=== PATIENT | male | born 1975 | race Caucasian/White ===

== ENCOUNTER 2020-03-11 12:27 | Outpatient (REF) | payer OTHER, SELFPAY ==
[2020-03-11 14:23] LABS: Anion Gap 12 (12-20); Blood Urea Nitrogen 17 mg/dL (9-16); Calcium 9.2 mg/dL (8.4-10.2); Carbon Dioxide 28 mmol/L (22-29); Chloride 103 mmol/L (96-108); Estimated Glomerular Filt Rate > 60; Glucose Random 99 mg/dL (60-115); Potassium 4.9 mmol/l (3.3-5.1); Sodium 138 mmol/L (135-145)
== END 2020-03-11 12:28 | disposition home or self-care (01) ==
LOC: HO.WFDLDS 12:27
PROVIDERS: Visit Provider Hospitalist
DX: M54.9 Dorsalgia, unspecified (principal); G89.29 Other chronic pain
CPT/HCPCS: 36415; 80048

== ENCOUNTER 2020-04-25 14:41 | Outpatient (RCR) | payer OTHER, SELFPAY ==
--- NOTE | 2020-04-25 16:18 | MHC.PT.EP ---
[facility] [place] Office [place] Office [place] Office [address] Alessandro Lindsay [address] [phone] F: [phone] F: [phone] F: [phone] F: [phone] Physical Therapy Plan of Care Date of Evaluation: 04/25/20 Date of Surgery: Diagnosis: low back pain Assessment: The Pt is a 44 y/o male referred to skilled PT for low back pain. Currently, the Pt reports no pain or discomfort, just mild stiffness/tightness. He states that he has episodes of severe back pain which essentially leaves him immobile or in significant distress for up to 2 weeks. He reports that when this occurs, the only way to get relief is laying supine and making sure he doesn't remain in one position for an extended period of time. Assessment reveals impaired ability to activate transverse abdominus, decreased core strength, muscle length deficits, mild tenderness to palpation along the lumbar PVM, and impaired thoracic mobility. The Pt will benefit from skilled PT services 1x/week for 8 weeks in order to reduce impairments and educate Pt on home exercise program to manage symptoms and reduce episodes of severe pain. Frequency and Duration: The patient will be seen 1x/week for 8 weeks Short Term Goals: -In 3 weeks, Pt to improve hamstring length B by at least 10 degrees. 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 -In 8 weeks, Pt to demonstrate I w/ HEP. Treatment Plan: Modalities to reduce pain, spasms and effusion. Manual therapy to restore motion and function. Therapeutic exercise to improve strength and flexibility. Neuromuscular re-education for posture and balance. Therapeutic activities to return to functional activities of daily living. Electronically signed by: Mahnaz Raza PT, DPT Please sign and return to therapist. Thank you for your referral.
--- NOTE | 2020-05-12 11:16 | MHC.PT.DC ---
[facility] [place] Office [place] Office [place] Office [address] Alessandro Lindsay [address] [phone] F: [phone] F: [phone] F: [phone] F: [phone] Physical Therapy Discharge Report Diagnosis: low back pain Date of Surgery: Date of Evaluation: 04/25/20 Date of Discharge: Treatments to Date: 1 Cancellations to Date: 1 No Shows to Date: 2 Discharge Status: Patient Elected to Stop Discharge Summary: The patient has elected not to be seen since the initial PT eval 16 days ago. He cancelled or no showed all additionally scheduled appointments. He has nothing else scheduled. D/C per Pt request. Electronically signed by: Mahnaz Raza PT, DPT Please sign and return to therapist. Thank you for your referral.
== END 2020-05-12 11:18 | disposition other institution (70) ==
LOC: HO.PT 14:41
PROVIDERS: PCP Internal Medicine; Visit Provider Internal Medicine
DX: M54.5 Low back pain (principal)
CPT/HCPCS: 97110; 97161

== ENCOUNTER → 2020-06-14 15:40 | Outpatient (BNVA) | payer OTHER, SELFPAY | PROVIDERS: PCP Internal Medicine; Visit Provider Nurse Practitioner Family ==

== ENCOUNTER → 2020-07-19 08:16 | Outpatient (BNVA) | payer OTHER, SELFPAY | PROVIDERS: PCP Internal Medicine; Visit Provider Psychiatry & Neurology Neurology ==

== ENCOUNTER → 2022-08-06 12:52 | Outpatient (BNVA) | payer OTHER, SELFPAY | PROVIDERS: PCP Internal Medicine; Visit Provider Anesthesiology | DX: M76.31 Iliotibial band syndrome, right leg (principal); M70.61 Trochanteric bursitis, right hip; G89.4 Chronic pain syndrome | CPT/HCPCS: 20552 ==

== ENCOUNTER 2024-01-15 10:03 | Outpatient (REF) | payer OTHER, SELFPAY ==
--- NOTE | ~2024-01-15 | XR_ITS ---
EXAMINATION: XR CHEST CLINICAL INFORMATION: Acute upper respiratory infection COMPARISON: None available. TECHNIQUE: 2 views of the chest were obtained. FINDINGS: No significant abnormality is noted involving the heart, lungs, mediastinum, bony thorax or soft tissues. XR/XR chest 2V IMPRESSION: Unremarkable examination. Electronically signed by: Hira Robledo MD 01/15/2024 04:13 PM [facility]
[2024-01-15 14:22] LABS: Influenza A PCR NEGATIVE (Negative); Influenza B PCR NEGATIVE (Negative); Resp Syncy Virus RNA Qual PCR NEGATIVE (Negative); SARS COV2 PCR INHOUSE NEGATIVE (Negative)
== END 2024-01-15 10:04 | disposition home or self-care (01) ==
LOC: HO.HMGCX 10:03
PROVIDERS: PCP Internal Medicine; Visit Provider Registered Nurse
DX: J06.9 Acute upper respiratory infection, unspecified (principal)
CPT/HCPCS: 0241U; 71046; 94640

== ENCOUNTER 2024-01-15 10:03 | Outpatient (AMB) | payer OTHER, SELFPAY ==
--- NOTE | 2024-01-15 10:23 | MHC.OFFWIV ---
Intake Vital Signs 01/15/24 10:30 Weight 202 lb 8 oz BP 120/88 Blood Pressure Location Rt brachial Position Sitting Pulse 78 Pulse Source Pulse Oximeter Temp 98.0 F Temp Source Oral Pulse Oximetry (%) 97 Oxygen Delivery Method Room Air Intake Visit Reasons: EP Chest congestion [phone] Intake Note: Patient here for chest congestion and cough that started saturday afternoon Patient Tobacco Use Status: Current everyday Tobacco user Allergies No Known Allergies Allergy (Verified 01/15/24 10:23) Do you need a note to return to daycare/school/sports/work: No HPI EP Chest congestion [phone] HPI Details This note is constructed using voice recognition software. While every effort has been made to ensure accuracy, supply assistant errors may have been included. The patient is a 48 year old male who presents to the clinic today with cough and congestion since Saturday. He notes that he was on vacation in [place] when he developed symptoms. He reports cough, chest congestion, and some dyspnea when he is talking. He has been taking cough syrup which has not seem to help the symptoms. He does have some mild body aches. He has had chills, but did not check his temperature. He reports he has been using his son's albuterol inhaler, however it has not helped his dyspnea. [facility] Medical History Low back pain Overweight (BMI 25.0-29.9) Witnessed apneic spells Surgical History No pertinent past surgical history Family History Father Arthritis Mother Esophageal cancer Brother No problems noted. Son No problems noted. Daughter No problems noted. Social History Alcohol intake: current Alcohol intake frequency: a few times a week Alcohol type: beer Patient Tobacco Use Status: Current everyday Tobacco user Review of Systems Const All systems reviewed & are unremarkable except as noted in HPI and below Physical Exam Vital Signs: Last Vital Signs Temp 98.0 F 01/15/24 10:30 Pulse 78 01/15/24 10:30 BP 120/88 01/15/24 10:30 Pulse Ox 97 01/15/24 10:30 Oxygen Delivery Method Room Air 01/15/24 10:30 Const General: cooperative, healthy appearing, comfortable and no acute distress Orientation/consciousness: patient oriented x3 Limitations: no limitations HEENT Head: Yes normal to inspection Ears: hearing grossly normal bilaterally, external ears normal and TM's normal bilaterally General nose exam: Normal external nose present, Normal nares present and No nasal discharge present Face and sinus: Yes normal facial exam and Yes sinuses nontender Mouth: Normal oral and palatal mucosa present and moist mucous membranes Throat: Yes tonsils normal, Yes uvula midline and Yes posterior oropharynx abnormal (Erythema) Eyes General: appearance normal, both eyes and all related structures Neck Neck: Yes normal visual inspection Resp Effort & Inspection: normal respiratory effort, able to speak in complete sentences, Actively coughing, no respiratory distress, not tachypneic, no tripod positioning and no use of accessory muscles Auscultation: wheezes throughout Cardio Jugular venous distension: no JVD Rate: regular rate Rhythm: regular rhythm Heart sounds: S1 normal heart sound present, S2 normal heart sound present, no click, no gallops, no murmurs and no rubs Skin General skin exam: no rashes or lesions noted, elasticity normal and turgor normal Neuro General: patient oriented x3 Extrem General: Yes normal to inspection and Yes no clubbing, cyanosis or edema Office Procedures Nebulizer Treatment Nebulizer Treatment 96857-Hmllyrsbi/MDI RX initial, or Nebulizer Subsequent Treatment Office Meds albuterol sulfate 2.5 mg/3 mL (0.083 %) solution for nebulization Performing Provider: Jessica Aden NP Performing Location: [facility] Administered by: Jessica Aden NP on 01/15/24 11:02 Dose Route Admin Location Dispensed Lot Number Expiration Date [facility][NOTE 3] Psychiatric Nurse Practitioner 2.5 mg inhalation inhalation 3 mL [id number] 10/02/24 8742-1537-88 MYLAN Assessment & Plan Assessment & Plan (1) URI with cough and congestion: Code(s): J06.9 - Acute upper respiratory infection, unspecified Plan: Viral swab obtained to rule out Covid based on symptoms. Advised mask wearing while symptomatic and quarantine per current CDC guidelines. Reviewed at home support methods including hydration, humidification, vix vapor rub, sinus rinse. Prednisone taper and albuterol inhaler prescribed for symptomatic management. Advised trial of Mucinex as well. Chest x-ray obtained to rule out pneumonia, which appears unremarkable. Advised follow up with worsening symptoms such as dyspnea at rest, which would require emergent evaluation. Plan See above for full details and plan. Orders: Orders AMB Nebulizer Treatment Today J06.9 - Acute upper respiratory infection, unspecified XR chest 2V Today J06.9 - Acute upper respiratory infection, unspecified SARS-CoV2/FLU/RSV Today J06.9 - Acute upper respiratory infection, unspecified Medications: New prednisone 5 tablets daily for 2 days, then 4 tablets daily for 2 days, then 3 tablets daily for 2 days, then 2 tablets daily for 2 days, then 1 tablet daily for 2 days. 10 mg PO DIRECTED 30 tabs 0RF albuterol sulfate 90 mcg/actuation 1 - 2 puffs inhalation QID PRN 6.7 grams 0RF Shortness Of Breath Or Wheezing Coding Level of Care Code Est Pt Level 4 (33048) Diagnoses URI with cough and congestion J06.9 CPT Codes Nebulizer Treatment - Nebulizer Treatment, initial or subsequent: 23161-Xrhjeduxm/MDI RX initial, or Nebulizer Subsequent Treatment ([id number])
[2024-01-15 10:30] VITALS: BP 120/88; PULSE 78; TEMP 36.7; O2SAT 97
== END 2024-01-15 11:42 | disposition home or self-care (01) ==
PROVIDERS: PCP Internal Medicine; Visit Provider Registered Nurse
DX: J06.9 Acute upper respiratory infection, unspecified (principal)

== ENCOUNTER 2024-07-15 08:50 | Outpatient (AMB) | payer OTHER, SELFPAY ==
--- NOTE | 2024-07-15 08:52 | A.OFFVIS_ITS ---
Vital Signs 07/15/24 08:53 Height 6 ft 1 in Weight 213 lb BMI 28.1 BP 157/96 H Blood Pressure Location Lt brachial Position Sitting Respiration 15 Pulse 66 Pulse Source Pulse Oximeter Pulse Oximetry (%) 99 Oxygen Delivery Method Room Air Intake Visit Reasons: Increasing back pain/VANDANA 08/06/22 Telephone Interviewer Required: No Allergies No Known Allergies Allergy (Verified 07/15/24 08:54) Medication List - Last Reconciled 07/15/24 by Veronika Allen LPN ibuprofen 800 mg PO Q6H PRN HPI Comments Details: Greg was in my office 2 years ago with symptoms concordant with right iliotibial band. He denied pain in the lower back at that time. However injection of the steroids into the trochanteric bursa non image guided resulted in no improvement. He stated that his pain went away on its own that is why he did not schedule any follow-up appointment. 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 Patient stated that his pain went away. Now he presents again in my office with complains on pain in the lower back with radiation of the pain down to the right lower extremity on the lateral surface of the hip lateral surface of the lower leg and numbness of the 4th and 5th toes. His pain is getting worse and he requests continuous evaluation. He reports difficulty sitting and pain exacerbation with sitting. I suspect radiculopathy of the S1 nerve root on the right as well as vertebra genic pain syndrome. Sacroiliac symptoms and signs are negative. PRIOR: ? ? Greg is a 42 y/o who presents for initial evaluation of chronic intermittent back pain that radiates into the bilateral hips/legs, right greater then left. He denies any trauma. His pain episodes started approximately 7-8 years ago. His pain is described as a deep toothache that when exacerbated will last for a week and then subsides and reoccurs every few months. He denies any weakness, b/b dysfunction, numbness, tingling, fevers, chills, or wt change. He was given prn pain medications, steroid taper, and NSAID's. He obtained an xray of the lumbar spine and was referred to me. While awaiting for his appointment his pain resolved and has not reoccurred as of yet. He kept his appointment so that if it should reoccur he can come in for evaluation quickly [facility] Medical History Low back pain Overweight (BMI 25.0-29.9) Witnessed apneic spells Surgical History No pertinent past surgical history Family History Father Arthritis Mother Esophageal cancer Brother No problems noted. Son No problems noted. Daughter No problems noted. Social History Alcohol intake: current Alcohol intake frequency: a few times a week Alcohol type: beer Patient Tobacco Use Status: Current everyday Tobacco user Review of Systems Const All systems reviewed & are unremarkable except as noted in HPI and below ENT Reports Normal hearing present Neuro Reports Normal hearing present and Denies Abnormal speech present Physical Exam Vital Signs: Last Vital Signs Pulse 66 07/15/24 08:53 Resp 15 07/15/24 08:53 BP 157/96 H 07/15/24 08:53 Pulse Ox 99 07/15/24 08:53 Oxygen Delivery Method Room Air 07/15/24 08:53 BMI result Body Mass Index 28.1 Const General: cooperative, healthy appearing, comfortable, no acute distress and alert Nutritional Appearance: average body habitus Orientation/consciousness: patient oriented x3 Limitations: no limitations HEENT Head: Yes normocephalic and Yes atraumatic Ears: hearing grossly normal bilaterally Eyes General: appearance normal, both eyes and all related structures Neck Neck: Yes normal visual inspection, Yes full ROM, Yes supple and Yes no JVD Resp Effort & Inspection: normal respiratory effort, able to speak in complete sentences and no audible wheezes Cardio Jugular venous distension: no JVD Palpation: other (no appreciable rhythmic abnormalities ) Peripheral pulses: radial pulses present, posterior tibial pulses present and dorsalis pedis present Back/Spine/Pelvis Other: Patient able to walk on heels and tip toes with no difficulties demonstrating good motor tone. Can flex forward to 60-75 degrees and extend to 10 degrees before experiencing lumbar pain. Demonstrates 5/5 strength of quadriceps bilaterally as well as flexion/dorsiflexion of bilateral feet against resistan ce. Tenderness on palpation in paraspinal spinal region lower portion of the lumbar spine. SLR is positive on the right. Fernando test is negative on the right. Reports numbness in 4th and 5th finger. Cervical Spine: cervical ROM normal Neuro General: patient oriented x3, gait normal, moves all extremities and Normal light touch and pain sensation Cranial nerves: Yes Normal hearing present Speech: No Abnormal speech present Gait exam (Neuro): Normal gait present Motor exam (neuro): 5/5 motor strength present throughout and no tremor noted Psych Appearance: grossly normal Speech and movement: Clear speech present Affect: normal affect Thought process: Normal thought process present Insight: Good insight present (Psych) Judgement: Good judgement present (Psych) Assessment & Plan Assessment & Plan (1) Lumbosacral radiculopathy at S1: Code(s): M54.17 - Radiculopathy, lumbosacral region Category: Medical (2) Vertebrogenic low back pain: Code(s): M54.51 - Vertebrogenic low back pain Category: Medical Plan I will schedule this patient for the MRI of the lumbar spine. The very moment the patient will step out of the MRI she will give us a call and schedule an appointment with me. We will discuss MRI and we will choose appropriate way of treating of his pain. Orders: Orders MR lumbar spine wo con Today M54.17 - Radiculopathy, lumbosacral region, M54.51 - Vertebrogenic low back pain Patient Instructions: I here by testify that I spent 32 minutes in conversation with this patient as well as evaluating his prior records, planning his care and organizing this note. Coding Level of Care Code Est Pt Level 4 (14923) Diagnoses Lumbosacral radiculopathy at S1 M54.17 Vertebrogenic low back pain M54.51
[2024-07-15 08:53] VITALS: BP 157/96; PULSE 66; RESP 15; O2SAT 99; BMI 28.1
== END 2024-07-15 09:10 | disposition home or self-care (01) ==
LOC: HO.PMC 08:51
PROVIDERS: PCP Internal Medicine; Visit Provider Anesthesiology
DX: M54.17 Radiculopathy, lumbosacral region (principal); M54.51 Vertebrogenic low back pain
CPT/HCPCS: 99214

== ENCOUNTER 2024-08-21 15:42 | Outpatient (AMB) | payer OTHER, SELFPAY ==
--- NOTE | 2024-08-21 15:47 | A.OFFPC_ITS ---
Vital Signs 3 08/21/24 15:48 Height 6 ft 1 in Weight 209 lb BMI 27.6 BP 134/86 Blood Pressure Location Lt brachial Position Sitting Respiration 16 Pulse 75 Pulse Source Pulse Oximeter Temp 98.0 F Temp Source Oral Pulse Oximetry (%) 97 Oxygen Delivery Method Room Air Intake Visit Reasons: re-establish care not been seen in over 4 years Intake Note: Patient is a new patient here to establish care. Patient is re-establishing care at this practice; reports that he was not seen elsewhere in the interim. 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 Accompanied by: Self / Same As Patient Allergies No Known Allergies Allergy (Verified 08/21/24 16:24) Medication List - Last Reconciled 08/21/24 by ABEL Borjas No Known Home Meds Tobacco use date assessed: 08/21/24 Dental Screening Dental Screen Date: 08/21/24 Did you have a dental visit in the last 12 months?: Yes Did you have a dental problem in the last 6 months where you did not have access to dental care?: No Was dental information given to patient?: Patient has dentist HPI re-establish care not been seen in over 4 years 2 HPI0 Details Previous PCP:has not have a PCP in a while Last visit: 3 years Last PE: been awhile Specialist: pain management OBGYN:n/a Past medical history:low back pain, radiating down right leg, and associated with numbness and tingling in right foot Medications: Family HX: father had multiple colon polyps, mother of cancer that was associated with her smoking Problem: The patient is a 48-year-old male presenting to re-establish care with concerns of sleep apnea and chronic back pain. The patient reports experiencing episodes of apnea during sleep, as noted by his girlfriend, and feels tired during the day despite adequate sleep duration. He previously underwent a home sleep study approximately three to four years ago but did not follow up on the results. He expresses interest in undergoing another sleep study to confirm the diagnosis. 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 He experiences tingling and numbness in his right leg, with symptoms exacerbated by prolonged sitting, such as during his commute. He is currently undergoing physical therapy twice a week and has previously used NSAIDs for pain management. The patient has a history of elevated blood pressure, which may have been influenced by pain. His current blood pressure reading is 134/86 mmHg. He has a family history of colon polyps and cancer, prompting consideration for colon cancer screening. He also has a family history of skin cancer, and a dermatology referral is planned for screening. The patient has a history of tobacco use, quitted smoking a year ago, but currently uses a vape pen daily. right inner forearm epidermal cyst and smaller epidermal cyst at the outer aspect of the right forearm. Will do an ultrasound to further evaluate [facility] Medical History Overweight (BMI 25.0-29.9) Witnessed apneic spells Low back pain Surgical History No pertinent past surgical history Family History Father Arthritis Mother Esophageal cancer Brother No problems noted. Son No problems noted. Daughter No problems noted. 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 1. Little interest or pleasure in doing things: nearly every day 2. Feeling down, depressed, or hopeless: not at all 3. Trouble falling or staying asleep, or sleeping too much: more than half the days 4. Feeling tired or having little energy: more than half the days 5. Poor appetite or overeating: not at all 6. Feeling bad about yourself - or that you are a failure or have let yourself or your family down: not at all 7. Trouble concentrating on things, such as reading the newspaper or watching television: not at all 8. Moving or speaking so slowly that other people could have noticed. Or the opposite - being so fidgety or restless that you have been moving around a lot more than usual: not at all 9. Thoughts that you would be better off or of hurting yourself in some way: not at all Total score: 7 Depression Screening Interpretation: Positive Depression Screening Done: Yes 33601 - PHQ-9 Billing: Yes Source: Developed by Drs. Joe Alexander, Mirna Bradshaw, Jules Gomes and colleagues, with an educational julian from [employer]. Thrive Questionnaire Date Thrive assessed: 08/21/24 I am a: Patient What is your living situation today?: I have a steady place to live Within the past 12 months, did the food you bought not last and you didn't have the money to get more?: Never true Within the past 12 months, did you worry whether your food would run out before you got money to buy more?: Never true Do you have trouble paying for medicines?: No Do you have trouble getting transportation to medical appointments?: No Do you have trouble paying your heating and electricity bill?: No Do you have trouble taking care of your child, family member or friend?: No Do you have trouble with day-to-day activities such as bathing, preparing meals, shopping, managing finances, etc.?: No Are you currently unemployed and looking for a job?: No Are you interested in more education?: No Please select the resources that you would like help with: None Currently or been in a relationship where the following occur: No concerns reported THRIVE Score: 0 AUDIT C Alcohol Use Questionnaire (AUDIT-C) 1. How often do you have a drink containing alcohol?: 2-3 times a week 2. How many drinks containing alcohol do you have on a typical day when you are drinking?: 1 or 2 3. How often do you have six or more drinks on one occasion?: Monthly Total Score: 5 Score Reviewed/Action Taken: Yes JAE-7 AMB Questionnaire JAE-7 Date JAE - 7 assessed: 08/21/24 Feeling nervous, anxious, or on edge: 0 = Not at all Not being able to stop or control worryin = Not at all Worrying too much about different things: 0 = Not at all Trouble relaxin = Not at all Being so restless that it is hard to sit still: 0 = Not at all Becoming easily annoyed or irritable: 0 = Not at all Feeling afraid as if something awful might happen: 0 = Not at all Total JAE-7 score (0-4 normal; 5-9 mild; 10-14 moderate; 15-21 severe): 0 Source: Developed by Drs. Joe Alexander, Mirna Bradshaw, Jules Gomes and colleagues, with an educational julian from [employer]. JAE-7 Assessment Billing JAE-7 Assessment Tool: JAE-7 Assessment 91664 Review of Systems Const Denies headache(s) Eyes Denies loss of vision ENT Denies vertigo, Denies dizziness, Denies headache(s) and Denies sore throat Card Denies chest pain, Denies leg edema and Denies lightheadedness Resp Denies cough, Denies hemoptysis and Denies wheezing GI Denies abdominal pain, Denies melena, Denies constipation, Denies diarrhea and Denies vomiting Denies dysuria, Denies urinary frequency and Denies urinary urgency Musc Reports back pain, Denies arthralgias, Denies joint swelling, Reports numbness (Right foot), Reports radiating pain into limb (right leg) and Reports tingling (Right foot) Skin/Breast Reports lesions (2 epidermal cysts to right forearm larger anterior, smaller posterior) Neuro Denies Abnormal speech present, Denies behavioral changes, Denies vertigo, Denies dizziness, Denies headache(s), Denies loss of vision, Denies memory loss, Reports numbness (Right foot) and Reports tingling (Right foot) Psych Denies anxiety, Denies behavioral changes, Denies depression, Denies memory loss and Denies panic attacks David/Lymph Denies easy bleeding and Denies easy bruising Aller/Immun Denies wheezing Physical exam (Primary Care) Vital Signs: Last Vital Signs Temp 98.0 F 08/21/24 15:48 Pulse 75 08/21/24 15:48 Resp 16 08/21/24 15:48 BP 134/86 08/21/24 15:48 Pulse Ox 97 08/21/24 15:48 Oxygen Delivery Method Room Air 08/21/24 15:48 BMI result Body Mass Index 27.6 Tobacco/Smoking Status: Tobacco use Status Tobacco use date assessed 08/21/24 08/21/24 15:58 Patient Tobacco Use Status Never used Tobacco 08/21/24 15:58 e-Cigarette/Vaping Use Currently Using 08/21/24 15:58 PHQ-9: PHQ-9 Score PHQ-9: Total score 7 08/21/24 16:36 Depression Screening Interpretation: Positive Thrive Assessment: Date of Thrive Assessment Date Thrive assessed 08/21/24 08/21/24 15:58 Currently or been in a relationship where the following occur: No concerns reported Const General: healthy appearing, no acute distress, alert and awake Nutritional Appearance: well nourished Orientation/consciousness: oriented to person, oriented to place and oriented to time HENMT Ears: TM's normal bilaterally General nose exam: Normal nasal mucous membranes and turbinates present Eyes Conjunctivae: conjunctivae normal Sclerae: sclerae normal Pupils: Equal, round and reactive pupils present Neck Neck: Yes no lymphadenopathy and Yes no JVD Thyroid: Thyroid normal Carotids: no bruits Resp Effort & Inspection: normal respiratory effort and not tachypneic Auscultation: no crackles, no rales, no rhonchi and no wheezes Cardio Rate: regular rate Rhythm: regular rhythm Heart sounds: no murmurs and normal S1 and S2 GI Palpation (GI): Soft to palpation, nontender, no hepatomegaly and no splenomegaly Auscultation: normal bowel sounds General: Yes no CVA tenderness Back/Spine/Pelvis Back: no CVA tenderness Cervical Spine: No Cervical spine tenderness Thoracic/Lumbar Spine: No thoracic spinal tenderness and No lumbar spinal tenderness Skin General skin exam: dry skin Lesions: lesion noted Full body images: 2 1. Epidural cyst to anterior forearm 2. Epidural cyst to posterior forearm Neuro General: oriented to person, oriented to place and oriented to time Cranial nerves: Yes Equal, round and reactive pupils present Speech: No Abnormal speech present Gait exam (Neuro): Normal gait present Motor exam (neuro): no tremor noted Extrem Right upper extremity: full ROM Left upper extremity: full ROM Right lower extremity: full ROM; no edema Left lower extremity: full ROM; no edema Psych Mental Status: mental status grossly normal Speech and movement: Normal speech and movement present Affect: normal affect Attitude: cooperative Thought process: Normal thought process present Coding Level of Care Code New Pt Level 4 (46395) Diagnoses Chronic right-sided low back pain with right-sided sciatica M54.41; G89.29 Chronicity: chronic Back pain laterality: right Sciatica presence: with sciatica Sciatica laterality: sciatica of right side Witnessed apneic spells R06.81 Snoring R06.83 Epidermal cyst L72.0 Family history of skin cancer Z80.8 Family history of colonic polyps Z83.719 Additional Codes JAE-7 Assessment Billing - JAE-7 Assessment Tool: JAE-7 Assessment 75250 ([id number]) PHQ-9 - 91053 - PHQ-9 Billing: Yes ([id number]) Time Spent (min) 39 Assessment & Plan Assessment & Plan (1) Low back pain: Comment: X-rays of the lumbosacral spine done back on 11/29/2017 revealed only the presence of Schmorl's nodes at L2. The rest of the lumbar spine is normal and disc spaces are well preserved and vertebral alignment is normal. SI joints are normal as well Code(s): M54.5 - Low back pain Category: Medical Qualifiers: Chronicity: chronic Back pain laterality: right Sciatica presence: w ith sciatica Sciatica laterality: sciatica of right side Qualified Code(s): M 54.41 - Lumbago with sciatica, right side; G89.29 - Other chronic pain Plan: s/p injury to back that he explained has stepping off forklift and immediately having back pain Lumbar xray on 11/2017 showed only schmorl's nodes at L2. He currently being managed by Pain Management, he is going PT 2/week. Pain Management also ordered a MRI. No other interventions added today. (2) Witnessed apneic spells: Code(s): R06.81 - Apnea, not elsewhere classified Category: Medical Plan: high suspicion of sleep apnea he had a home sleep study in the past but did not follow for the results will order the patient a home sleep study to further evaluate (3) Snoring: Code(s): R06.83 - Snoring Category: Medical Plan: had a home sleep study about 3-4 years ago but did not follow witnessed apneic episodes and feeling tired during the daytime will order a home sleep study (4) Epidermal cyst: Code(s): L72.0 - Epidermal cyst Category: Medical Plan: Two epidermoid cysts. One at the anterior portion of the right forearm which is larger than the one at the posterior region. Reports that these have been there for awhile, but seem to have gotten bigger. Will order an ultrasound of the right forearm to further evaluate (5) Family history of skin cancer: Code(s): Z80.8 - Family history of malignant neoplasm of other organs or systems Category: Medical Plan: will place a dermatology referral for evaluation (6) Family history of colonic polyps: Code(s): Z83.719 - Family history of colon polyps, unspecified Category: Medical Plan reports father having multiple colon polyps pt also has a 30 year smoking history-since had switched to vaping daily will order a colonoscopy Orders: Orders 2 Complete Blood Count Auto Diff Today E66.3 - Overweight, M54.16 - Radiculopathy, lumbar region, M54.5 - Low back pain, R06.81 - Apnea, not elsewhere classified, Z00.00 - Encounter for general adult medical examination without abnormal findings UA CC w/rflx Micro + Cult Today E66.3 - Overweight, M54.16 - Radiculopathy, lumbar region, M54.5 - Low back pain, R06.81 - Apnea, not elsewhere classified, Z00.00 - Encounter for general adult medical examination without abnormal findings RT home sleep study Today G47.19 - Other hypersomnia, R06.81 - Apnea, not elsewhere classified, R06.83 - Snoring US Extremity Nonvas Limited RT Today L72.0 - Epidermal cyst Comprehensive [place]. Panel Fast Today E66.3 - Overweight, M54.16 - Radiculopathy, lumbar region, M54.5 - Low back pain, R06.81 - Apnea, not elsewhere classified, Z00.00 - Encounter for general adult medical examination without abnormal findings TSH reflex Free T4 Today E66.3 - Overweight, M54.16 - Radiculopathy, lumbar region, M54.5 - Low back pain, R06.81 - Apnea, not elsewhere classified, Z00.00 - Encounter for general adult medical examination without abnormal findings Vitamin D 25-OH Total Today E66.3 - Overweight, M54.16 - Radiculopathy, lumbar region, M54.5 - Low back pain, R06.81 - Apnea, not elsewhere classified, Z00.00 - Encounter for general adult medical examination without abnormal findings Lipid Panel Today E66.3 - Overweight, M54.16 - Radiculopathy, lumbar region, M54.5 - Low back pain, R06.81 - Apnea, not elsewhere classified, Z00.00 - Encounter for general adult medical examination without abnormal findings Referrals 2 Dermatology Referral Z80.8 - Family history of malignant neoplasm of other organs or systems Gastroenterology Referral Z83.719 - Family history of colon polyps, unspecified, Z87.891 - Personal history of nicotine dependence
[2024-08-21 15:48] VITALS: BP 134/86; PULSE 75; RESP 16; TEMP 36.7; O2SAT 97; BMI 27.6
== END 2024-08-21 16:53 | disposition home or self-care (01) ==
LOC: HO.HMCH 15:42
DX: M54.41 Lumbago with sciatica, right side (principal); G89.29 Other chronic pain; R06.81 Apnea, not elsewhere classified; R06.83 Snoring; L72.0 Epidermal cyst; Z80.8 Family history of malignant neoplasm of other organs or systems; Z83.719 Family history of colon polyps, unspecified

== ENCOUNTER → 2024-08-21 15:42 | Outpatient (BNVA) | payer OTHER, SELFPAY | DX: Z76.89 Persons encountering health services in other specified circumstances (principal); M54.41 Lumbago with sciatica, right side; G89.29 Other chronic pain; R06.81 Apnea, not elsewhere classified; R06.83 Snoring; L72.0 Epidermal cyst; Z80.8 Family history of malignant neoplasm of other organs or systems; Z83.719 Family history of colon polyps, unspecified; Z13.31 Encounter for screening for depression; Z13.30 Encounter for screening examination for mental health and behavioral disorders, unspecified | CPT/HCPCS: 96127 ==

== ENCOUNTER 2024-08-27 15:02 | Outpatient (RCR) | payer OTHER, SELFPAY ==
--- NOTE | 2024-08-13 14:54 | MHC.PT.EP ---
[facility] [place] Office [place] Office [place] Office [address] Alessandro Lindsay [address] [phone] F: [phone] F: [phone] F: [phone] F: [phone] Physical Therapy Plan of Care Date of Evaluation: 08/13/24 Date of Surgery: n/a Diagnosis: Vertrogenic low back pain Chronic pain syndrome Assessment: Pt is a pleasant and motivated 48yo M who presents to PT with low back pain radiating into RLE. He has intermittent numbness and tingling into RLE. He presents to PT with current impairments in pain, decreased ROM, decreased strength, soft tissue restrictions, and impaired gait. His symptoms began to centralize with extension positions including prone. He is limited functionally by prolonged sitting, LE ADLs, and bending. He is an excellent candidate for skilled PT in order to address current impairments to facilitate return to PLOF. He is recommended to be seen 2x/week for 4 weeks and will be reassessed at that time Frequency and Duration: The patient will be seen 2x/week for 4 weeks Short Term Goals: Pt will be I with HEP to promote self management of symptoms Pt will have centralization of symptoms Planogrammer Goals: Pt will tolerate prolonged sitting > 1 hour with improved posture and without pain or radicular symptoms Pt will demonstrate ability to squat and picker tender helper 30# object with proper mechanics and without pain Pt will perform LE ADLs without pain or compensation Treatment Plan: Modalities to reduce pain, spasms and effusion. Manual therapy to restore motion and function. Therapeutic exercise to improve strength and flexibility. Neuromuscular re-education for posture and balance. Therapeutic activities to return to functional activities of daily living. Electronically signed by: Fatmata Harris, PT, DPT Please sign and return to therapist. Thank you for your referral.
--- NOTE | 2024-12-15 10:41 | MHC.PT.DC ---
[facility] [place] Office [place] Office [place] Office [address] Alessandro Lindsay [address] [phone] F: [phone] F: [phone] F: [phone] F: [phone] Physical Therapy Discharge Report Diagnosis: Vertrogenic low back pain Chronic pain syndrome Date of Surgery: n/a Date of Evaluation: 08/13/24 Date of Discharge: 12/15/24 Treatments to Date: 3 Cancellations to Date: 2 No Shows to Date: 2 Discharge Status: Visit Non-compliance Discharge Summary: Pt was seen for skilled PT from 08/13/24-08/27/24. His last attended appointment was 08/27/24. He had 2 cancellations and 2 no show appointments since SOC. He is being D/C from skilled PT as he has not attended or called to reschedule in > 30 days. Pt current level of function unknown at this time Electronically signed by: Fatmata Romo, PT, DPT Please sign and return to therapist. Thank you for your referral.
== END 2024-12-15 10:41 | disposition home or self-care (01) ==
LOC: HO.PT 15:02
PROVIDERS: PCP Internal Medicine; Visit Provider Anesthesiology
DX: M54.51 Vertebrogenic low back pain (principal); G89.4 Chronic pain syndrome
CPT/HCPCS: 97110; 97161

== ENCOUNTER 2024-09-30 15:35 | Outpatient (REF) | payer OTHER, SELFPAY ==
--- NOTE | ~2024-09-30 | US_ITS ---
US EXTREMITY NON-VASCULAR LIMITED RIGHT History: Two epidermoid cyst to right forearm. One anterior and one posterior. Comparison: None FINDINGS: Targeted ultrasound was performed at the location of the palpable concerns and indicated by the patient. The survey shows the following: -In the right mid forearm: 2.7 x 0.6 x 1.5 cm isoechoic/minimally hyperechoic solid mass in the superficial soft tissues. No abnormal vascularity demonstrated with color Doppler evaluation. -In the right posterior mid arm: 1.9 x 0.4 x 0.9 cm isoechoic/minimally hyperechoic solid mass in the superficial soft tissues. No abnormal gas collection is demonstrated with color Doppler evaluation. US/US Extremity Nonvas Limited RT IMPRESSION: Two palpable concerns in the right arm/forearm with benign sonographic features suggestive of lipomas. Electronically signed by: Armani Perez MD 09/30/2024 04:32 PM EDT
--- OUTSIDE RECORDS SUMMARY | 2024-09-30 16:14 | XMS_ITS | Clinical Summary ---
Author Organization [facility] Address [address] [place] [id number] Phone Care Team Providers Care Mobile Designer Name Role Phone Pcp, Unknown Primary Care Provider Unavailabl e Social History Tobacco Use Types Packs/Day Years Used Date Smoking Tobacco: Never Assessed Education Answer Date Recorded Are you interested in more education? Not on kasi e 06/29/2022 Are you concerned about learning? Not on file 06/29/2022 No 06/29/2022 No 06/29/2022 Digital Access Answer Date Recorded No 07/28/2022 No 07/28/2022 No 07/28/2022 Reliable internet access at home? Not on file 07/28/2022 Device with a working camera? Not on file Sex and Gender Information Value Date Recorded Sex Assigned at Not on file Legal Sex Male 1:16 PM EST Gender Identity Not on file Sexual Orientation Not on file Plan of Treatment Health Maintenance Due Date Last Done Comments Adult Td,Tdap Booster 1975 LIPID PANEL 1975 DEPRESSION SCREENING 1987 SMOKING Hx and SMOKELESS TOB ACCO SCREENING 10/04/1988 HEPATITIS C SCREENING 10/04/1993 HIV ONE-TIME SCREENING (18-6 5 YEARS) 10/04/1993 COLOGUARD 10/04/2020 COLONOSCOPY 10/04/2020 COLORECTAL CANCER SCREENING 10/04/2020 FIT TEST 10/04/2020 FOBT 10/04/2020 SIGMOIDOSCOPY 10/04/2020 VIRTUAL COLONOSCOPY 10/04/2020 COVID-19 VACCINE (2023-2 5 season) 2023 HEPATITIS A VACCINES Aged Out No long er eligible based on patient's age to complete this topic HIB VACCINES Aged Out No longer eligi ble based on patient's age to complete this topic MENINGOCOCCAL VACCINES (ACWY) Aged Out No longer eligible based on patient's age to complete this topic MENINGOCOCCAL VACCINES (B) Aged Out N o longer eligible based on patient's age to complete this topic PNEUMOCOCCAL VACCINES (0-49 years) Aged Out No longer eligible based on patient's age to complete this topic Medical Devices Not on file Insurance CIGNA PPO CIGNA PPO Member Subscriber Plan / Payer (Ef fective 2012-Present) Name:Greg Diaz Relation to Subscriber:Self Name:Greg Diaz Payer ID:[id number] ([facility]) Type:PPO Address: [place] [id number] CIGNA PPO CIGNA PPO CIGNA PPO CIGNA PPO CIGNA PPO CIGNA PPO CIGNA PPO Care Teams Mobile Designer Relationship Specialty Start Date End Date Pcp, Unknown PCP - General 03/05/20 Additional Source Comments The information contained in this document represents components of the legal health record. It is not the complete legal health record.[facility]
== END 2024-09-30 15:36 | disposition home or self-care (01) ==
LOC: HO.US 15:35
DX: L72.0 Epidermal cyst (principal)
CPT/HCPCS: 76882

== ENCOUNTER → 2024-09-30 15:37 | Outpatient (BNV) | payer OTHER, SELFPAY | PROVIDERS: Visit Provider Radiology Body Imaging | DX: R22.31 Localized swelling, mass and lump, right upper limb (principal) | CPT/HCPCS: 76882 ==

== ENCOUNTER 2024-10-22 15:47 | Outpatient (AMB) | payer OTHER, SELFPAY ==
--- OUTSIDE RECORDS SUMMARY | 2024-10-22 15:51 | XMS_ITS | Clinical Summary ---
Author Organization [facility] Address [address] [place] [phone] Phone Care Team Providers Care Pierogi Maker Name Role Phone Pcp, Unknown Primary Care [...] Relation to Subscriber:Self Name:Greg Diaz Payer ID:[id number] ([facility]) Type:PPO Address: [place] [id number] CIGNA PPO CIGNA PPO CIGNA PPO CIGNA PPO CIGNA PPO CIGNA PPO CIGNA PPO Care Teams Pierogi Maker Relationship Specialty Start Date End Date Pcp, Unknown PCP - General 03/05/20 Additional Source Comments The information contained in this document represents components of the legal health record. It is not the complete legal health record.[facility]
--- NOTE | 2024-10-22 16:09 | A.OFFPC_ITS ---
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 Accompanied by: Self / Same As Patient Allergies No Known Allergies Allergy (Verified 10/22/24 16:31) Medication List - Last Reconciled 10/22/24 by ABEL Borjas No Known Home Meds Tobacco use date assessed: 10/22/24 Dental Screening Dental Screen Date: 10/22/24 Did you have a dental visit in the last 12 months?: Yes Did you have a dental problem in the last 6 months where you did not have access to dental care?: No Was dental information given to patient?: Patient has dentist HPI ANNUAL PHYSICAL HPI Details Dentist: up to date Eye:Never had them check-will make an appointment Snellen: Right: Left: Corrected vision: cheaters STI screening: Colonoscopy: He was referred on previous visit and needs to call and make an appointment Pap Smer:n/a PHQ-9: Flu:He does not usually take this COVID: Tdap: due-he will hold off for now. Diet: regular Exercise: denies exercising The patient is a 49-year-old male presenting for annual physical and routine check-up and management of chronic conditions. The patient has a history of hypertension, with recent measurements showing a blood pressure of 138/90 mmHg. He reports that his blood pressure tends to fluctuate, and he has been advised to monitor it regularly. The patient also has a history of lipomas, with a new lump noted on his abdomen, similar in size to a previous one. He has been advised to monitor the size of these lipomas. The patient reports symptoms suggestive of sleep apnea, including feeling tired despite adequate sleep duration. A home sleep study has been recommended but has not yet been conducted. The patient experiences visual impairment, using reading glasses and noting variability in his ability to focus. He has been advised to have his vision checked, as he has not had an eye examination recently. Preventative care measures discussed include the need for a colonoscopy, which has not yet been scheduled. COUNT INCLUDES THE [facility] Medical History Overweight (BMI 25.0-29.9) Witnessed apneic spells Low back pain Surgical History No pertinent past surgical history Family History Father Arthritis Mother Esophageal cancer Brother No problems noted. Son No problems noted. Daughter No problems noted. 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 1. Little interest or pleasure in doing things: nearly every day 2. Feeling down, depressed, or hopeless: not at all 3. Trouble falling or staying asleep, or sleeping too much: more than half the days 4. Feeling tired or having little energy: more than half the days 5. Poor appetite or overeating: not at all 6. Feeling bad about yourself - or that you are a failure or have let yourself or your family down: not at all 7. Trouble concentrating on things, such as reading the newspaper or watching television: not at all 8. Moving or speaking so slowly that other people could have noticed. Or the opposite - being so fidgety or restless that you have been moving around a lot more than usual: not at all 9. Thoughts that you would be better off or of hurting yourself in some way: not at all Total score: 7 Depression Screening Interpretation: Positive Depression Screening Done: Yes Source: Developed by Drs. Joe Alexander, Mirna Bradshaw, Jules Gomes and colleagues, with an educational julian from [employer]. Thrive Questionnaire Date Thrive assessed: 10/22/24 I am a: Patient What is your living situation today?: I have a steady place to live Within the past 12 months, did the food you bought not last and you didn't have the money to get more?: Never true Within the past 12 months, did you worry whether your food would run out before you got money to buy more?: Never true Do you have trouble paying for medicines?: No Do you have trouble getting transportation to medical appointments?: No Do you have trouble paying your heating and electricity bill?: No Do you have trouble taking care of your child, family member or friend?: No Do you have trouble with day-to-day activities such as bathing, preparing meals, shopping, managing finances, etc.?: No Are you currently unemployed and looking for a job?: No Are you interested in more education?: No Please select the resources that you would like help with: None Currently or been in a relationship where the following occur: No concerns reported THRIVE Score: 0 AUDIT C Alcohol Use Questionnaire (AUDIT-C) 1. How often do you have a drink containing alcohol?: 2-3 times a week 2. How many drinks containing alcohol do you have on a typical day when you are drinking?: 1 or 2 3. How often do you have six or more drinks on one occasion?: Monthly Total Score: 5 Score Reviewed/Action Taken: Yes JAE-7 AMB Questionnaire JAE-7 Date JAE - 7 assessed: 10/22/24 Feeling nervous, anxious, or on edge: 0 = Not at all Not being able to stop or control worryin = Not at all Worrying too much about different things: 0 = Not at all Trouble relaxin = Not at all Being so restless that it is hard to sit still: 0 = Not at all Becoming easily annoyed or irritable: 0 = Not at all Feeling afraid as if something awful might happen: 0 = Not at all Total JAE-7 score (0-4 normal; 5-9 mild; 10-14 moderate; 15-21 severe): 0 Source: Developed by Drs. Joe Alexander, Mirna Bradshaw, Jules Gomes and colleagues, with an educational julian from [employer]. Review of Systems Const Reports daytime sleepiness, Denies headache(s) and Reports snoring Eyes Reports change in vision (difficulty reading) and Denies loss of vision ENT Denies vertigo, Denies dizziness, Denies headache(s) and Denies sore throat Card Denies chest pain, Denies leg edema and Denies lightheadedness Resp Denies cough, Denies hemoptysis, Reports snoring and Denies wheezing GI Denies abdominal pain, Denies melena, Denies constipation, Denies diarrhea and Denies vomiting Denies dysuria, Denies urinary frequency and Denies urinary urgency Musc Denies arthralgias, Denies joint swelling, Denies numbness and Denies tingling Neuro Denies Abnormal speech present, Denies behavioral changes, Denies vertigo, Denies dizziness, Denies headache(s), Denies loss of vision, Denies memory loss, Denies numbness and Denies tingling Psych Denies anxiety, Denies behavioral changes, Denies depression, Denies memory loss and Denies panic attacks David/Lymph Denies easy bleeding and Denies easy bruising Aller/Immun Denies wheezing Physical exam (Primary Care) Vital Signs: Last Vital Signs Temp 97.1 F 10/22/24 16:10 Pulse 69 10/22/24 16:10 Resp 18 10/22/24 16:10 BP 138/90 H 10/22/24 16:10 Pulse Ox 97 10/22/24 16:10 Oxygen Delivery Method Room Air 10/22/24 16:10 BMI result Body Mass Index 27.9 Tobacco/Smoking Status: Tobacco use Status Tobacco use date assessed 10/22/24 10/22/24 16:15 Patient Tobacco Use Status Never used Tobacco 10/22/24 16:15 e-Cigarette/Vaping Use Currently Using 10/22/24 16:15 PHQ-9: PHQ-9 Score PHQ-9: Total score 7 10/22/24 16:26 Depression Screening Interpretation: Positive Thrive Assessment: Date of Thrive Assessment Date Thrive assessed 10/22/24 10/22/24 16:15 Currently or been in a relationship where the following occur: No concerns reported Const General: healthy appearing, no acute distress, alert and awake Nutritional Appearance: well nourished Orientation/consciousness: oriented to person, oriented to place and oriented to time HENMT Ears: TM's normal bilaterally General nose exam: Normal nasal mucous membranes and turbinates present Eyes Conjunctivae: conjunctivae normal Sclerae: sclerae normal Pupils: Equal, round and reactive pupils present Neck Neck: Yes no lymphadenopathy and Yes no JVD Thyroid: Thyroid normal Carotids: no bruits Resp Effort & Inspection: normal respiratory effort and not tachypneic Auscultation: no crackles, no rales, no rhonchi and no wheezes Cardio Rate: regular rate Rhythm: regular rhythm Heart sounds: no murmurs and normal S1 and S2 GI Palpation (GI): Soft to palpation, nontender, no hepatomegaly and no splenomegaly Auscultation: normal bowel sounds Skin General skin exam: no rashes or lesions noted and dry skin Neuro General: oriented to person, oriented to place and oriented to time Cranial nerves: Yes Equal, round and reactive pupils present Speech: No Abnormal speech present Gait exam (Neuro): Normal gait present Motor exam (neuro): no tremor noted Deep tendon reflexes (DTR's): Right triceps reflex intensity grade: 2+, Left triceps reflex intensity grade: 2+, Rt Biceps (C5, C6): 2+, Left biceps reflex intensity grade: 2+, Right brachioradialis reflex intensity grade: 2+, Left brachioradialis reflex intensity grade: 2+, Right patellar reflex intensity grade: 2+ and Left patellar reflex intensity grade: 2+ Extrem Right upper extremity: full ROM Left upper extremity: full ROM Right lower extremity: full ROM; no edema Left lower extremity: full ROM; no edema Psych Mental Status: mental status grossly normal Speech and movement: Normal speech and movement present Affect: normal affect Attitude: cooperative Thought process: Normal thought process present Coding Level of Care Code Est Pt Prev Care 40-64y(32767) Diagnoses Annual physical exam Z00.00 Hypertension, unspecified type I10 Hypertension type: unspecified Overweight (BMI 25.0-29.9) E66.3 Family history of colonic polyps Z83.719 Family history of skin cancer Z80.8 Snoring R06.83 Excessive daytime sleepiness G47.19 Lipoma, unspecified site D17.9 Lipoma location: unspecified Time Spent (min) 38 Assessment & Plan Assessment & Plan (1) Annual physical exam: Code(s): Z00.00 - Encounter for general adult medical examination without abnormal findings Category: Medical (2) HTN (hypertension): Code(s): I10 - Essential (primary) hypertension Category: Medical Qualifiers: Hypertension type: unspecified Qualified Code(s): I10 - Essential (primary) hypertension (3) Overweight (BMI 25.0-29.9): Code(s): E66.3 - Overweight Category: Medical (4) Family history of colonic polyps: Code(s): Z83.719 - Family history of colon polyps, unspecified Category: Medical (5) Family history of skin cancer: Code(s): Z80.8 - Family history of malignant neoplasm of other organs or systems Category: Medical (6) Snoring: Code(s): R06.83 - Snoring Category: Medical (7) Excessive daytime sleepiness: Code(s): G47.19 - Other hypersomnia Category: Medical (8) Lipoma: Code(s): D17.9 - Benign lipomatous neoplasm, unspecified Category: Medical Qualifiers: Lipoma location: unspecified Qualified Code(s): D17.9 - Benign lipomatous neoplasm, unspecified Plan The patient is advised to monitor his blood pressure regularly due to fluctuations and a recent reading of 138/90 mmHg. A follow-up appointment is suggested to reassess blood pressure and consider further evaluation if necessary. Reinforced low salt diet. For the lipomas, the patient is instructed to monitor their size and report any significant changes. No immediate intervention is required unless there is a notable increase in size or symptoms. Regarding sleep apnea, a home sleep study is recommended to confirm the diagnosis and guide treatment. The patient should follow up with the sleep specialist if the study is not scheduled soon. The patient is advised to have an eye examination due to reported visual impairment and variability in focus. This will help determine if there are any underlying issues requiring correction. Preventative care includes scheduling a colonoscopy, which has been recommended but not yet arranged. Preventative guidelines reviewed with patient, no recent labs to review. Labs ordered for the patient to complete lucia to further evaluate his condition. Patient was informed and verbally consented to the use of an ambient scribe for clinic note documentation during this visit.
[2024-10-22 16:10] VITALS: BP 138/90; PULSE 69; RESP 18; TEMP 36.2; O2SAT 97; BMI 27.9
== END 2024-10-22 17:31 | disposition home or self-care (01) ==
LOC: HO.HMCH 15:48
DX: Z00.00 Encounter for general adult medical examination without abnormal findings (principal); I10 Essential (primary) hypertension; E66.3 Overweight; Z83.719 Family history of colon polyps, unspecified; Z80.8 Family history of malignant neoplasm of other organs or systems; R06.83 Snoring; G47.19 Other hypersomnia; D17.9 Benign lipomatous neoplasm, unspecified

== ENCOUNTER → 2024-11-05 15:49 | Outpatient (REF) | payer OTHER, SELFPAY ==
--- OUTSIDE RECORDS SUMMARY | 2024-11-05 16:33 | XMS_ITS | Clinical Summary ---
Author Organization [facility] Address [address] [place] [id number] Phone Care Team Providers Care Call Centre Supervisor Name Role Phone Pcp, Unknown Primary Care [...] FOBT 10/04/2020 SIGMOIDOSCOPY 10/04/2020 VIRTUAL COLONOSCOPY 10/04/2020 INFLUENZA VACCINE (#1) 2024 COVID-19 VACCINE (2023-2 5 season) 2024 HEPATITIS A VACCINES Aged Out No long [...] on file Insurance CIGNA PPO CIGNA PPO CIGNA PPO CIGNA PPO CIGNA PPO CIGNA PPO CIGNA PPO CIGNA PPO CIGNA PPO Care Teams Call Centre Supervisor Relationship Specialty Start Date End Date Pcp, Unknown PCP - General 03/05/20 Additional Source Comments The information contained in this document represents components of the legal health record. It is not the complete legal health record.[facility]
== END ==
LOC: HO.SL 15:49
DX: G47.33 Obstructive sleep apnea (adult) (pediatric) (principal); R06.83 Snoring; G47.19 Other hypersomnia
CPT/HCPCS: 95806

== ENCOUNTER → 2024-11-05 15:57 | Outpatient (BNV) | payer OTHER, SELFPAY | PROVIDERS: Visit Provider Internal Medicine | DX: G47.33 Obstructive sleep apnea (adult) (pediatric) (principal) | CPT/HCPCS: 95806 ==

== ENCOUNTER 2024-12-02 08:32 | Outpatient (AMB) | payer OTHER, SELFPAY ==
[2024-12-02 08:40] VITALS: BP 122/86; PULSE 59; O2SAT 98; BMI 28.4
--- NOTE | 2024-12-02 08:40 | MHC.OFFVIS ---
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 feeling tired despite adequate sleep duration. HST in chart(AHI-19, LUAN-82%. APAP 6-20cm) Accompanied by: Self / Same As Patient Allergies No Known Allergies Allergy (Verified 12/02/24 08:42) HPI Comments Details: 49 year old male pt referred to us for evaluation of sleep apnea and he is referred to us by his PCP. 11/05/2024 HST c/w AHI-19, oxygen luan to 82%, with snoring, start APAP [id number]. Reviewed HST with pt today he has moderate sleep apnea. He feels chronically fatigued, snores, has witnessed apneas. Denies parasomnias. He wakes up multiple times a night and has difficulty staying asleep. He naps daily and wakes up constantly due to RLS symptoms and chronic back pain, L2 per pain management. He has paresthesias and sciatic pain which wake him up at night. He has been to PT and notices when he does the exercises the pain improves. 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 Memory is poor, may forget details. His mood can be irritable, though manageable. BP is well managed. He denies smoking and drinks 2-3 beers a night. Denies MJ or edible use. [facility] Medical History Overweight (BMI 25.0-29.9) Witnessed apneic spells Low back pain Surgical History No pertinent past surgical history Family History Father Arthritis Mother Esophageal cancer Brother No problems noted. Son No problems noted. Daughter No problems noted. 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 Cognitive needs: No Hearing needs: No Vision needs: Yes (Reading glasses) Physical Exam Vital Signs: Last Vital Signs Pulse 59 12/02/24 08:40 BP 122/86 12/02/24 08:40 Pulse Ox 98 12/02/24 08:40 Oxygen Delivery Method Room Air 12/02/24 08:40 BMI result Body Mass Index 28.4 Const General: cooperative, comfortable and no acute distress Nutritional Appearance: average body habitus Orientation/consciousness: patient oriented x3 HEENT Face and sinus: Yes face symmetric Neck Neck: Yes full ROM Resp Effort & Inspection: normal respiratory effort and able to speak in complete sentences Neuro General: patient oriented x3 and moves all extremities Cognition (Neuro): normal cognition Motor exam (neuro): 5/5 motor strength present throughout and Normal motor muscle tone present throughout Psych Appearance: grossly normal Speech and movement: Normal speech and movement present Insight: Good insight present (Psych) Results Reviewed Results Reviewed: 11/05/2024 HST in chart AHI-19, LUAN-82%, APAP 6-20cm Assessment & Plan Assessment & Plan (1) Anemia: Code(s): D64.9 - Anemia, unspecified Category: Medical Qualifiers: Anemia type: iron deficiency Iron deficiency anemia type: unspecified iron deficiency Qualified Code(s): D50.9 - Iron deficiency anemia, unspecified Plan ALIN moderate HST reviewed with pt today, will send a rx to start cpap, and start him on APAP [id number]. Labs to r/o deficiencies. RLS will monitor Orders: Orders Vitamin B12 and Folate Today D64.9 - Anemia, unspecified Vitamin B1 Today D64.9 - Anemia, unspecified Methylmalonic Acid Today D64.9 - Anemia, unspecified, G47.9 - Sleep disorder, unspecified, R53.83 - Other fatigue Homocysteine Today D64.9 - Anemia, unspecified, G47.9 - Sleep disorder, unspecified, R53.83 - Other fatigue Vitamin D 25-OH Total Today D64.9 - Anemia, unspecified Vitamin B6 Today D64.9 - Anemia, unspecified TSH reflex Free T4 Today D64.9 - Anemia, unspecified Ferritin Today D64.9 - Anemia, unspecified Patient Instructions: Sleep Hygiene provided: set a scheduled bedtime and wake time to help regulate the circadian rhythm and balance the release of pituitary hormones. Sleep in a dark room, temperatures below 68 degrees, and no devices n bed. Limit caffeinated products 6 hours prior to bed, and limit fluids 2-4 hours prior to bed. Gentle night yoga, diffusing essential oils, and playing soft music can be relaxing. Coding Level of Care Code New Pt Level 4 (64458) Diagnoses Iron deficiency anemia, unspecified iron deficiency anemia type D50.9 Anemia type: iron deficiency Iron deficiency anemia type: unspecified iron deficiency Sleep Questionnaire Difficulty falling asleep: No Difficulty staying asleep?: Yes Snoring: Yes Witnessed apneas: Yes Gasping arousals: Yes Nocturia: No GERD: No Vivid dreams: No Acting out dreams: No Abnormal behavior in sleep: No Abnormal movements in sleep: No Morning headaches: No Excessive daytime sleepiness: Yes Daytime naps: Yes Restless legs: Yes Hallucinations: No Drop attacks: No Sleep Study: Yes CPAP: No
--- OUTSIDE RECORDS SUMMARY | 2024-12-02 09:02 | XMS_ITS | Clinical Summary ---
Author Organization [facility] Address [address] [place] [phone] Phone Care Team Providers Care Embedded Developer Name Role Phone Pcp, Unknown Primary Care [...] PPO CIGNA PPO CIGNA PPO Care Teams Embedded Developer Relationship Specialty Start Date End Date Pcp, Unknown PCP - General 03/05/20 Additional Source Comments The information contained in this document represents components of the legal health record. It is not the complete legal health record.[facility]
== END 2024-12-02 09:08 | disposition home or self-care (01) ==
LOC: HO.HSMC 08:32
PROVIDERS: Visit Provider Physician Assistant Medical
DX: D50.9 Iron deficiency anemia, unspecified (principal)
CPT/HCPCS: 99204